=== PATIENT | male | born 1940 | race Caucasian/White ===

== ENCOUNTER 2017-09-28 13:52 | Inpatient (IN) | payer OTHER, MEDICARE ==
[~2017-09-28] VITALS: Ht 175.3 cm; Wt 87.5 kg
[~2017-09-28 13:52] MED LIST: ADULT LOW DOSE81 M1 PO; AMIODARONE HCL200 MG PO; ASPIR 8181 M1 PO; ASPIRIN E.C.81 M1 PO; CARDIZEM CD,CA180 MG PO; CARVEDILOL6.25 MG PO; CENTRUM SILVER1 EAC1 PO; CENTRUM SILVER1 EAC3 PO; Centrum Silver,Certa PO; Coreg PO; DIGOXIN125 MCG PO; DIGOXIN250 MCG PO; DILTIAZEM 24HR180 MG PO; FUROSEMIDE20 MG PO; LASIX20 MG PO; LASIX40 MG PO; LISINOPRIL2.5 MG PO; LOPRESSOR100 M1 PO; LOPRESSOR50 MG PO; LOVASTATIN10 MG PO; LOVASTATIN20 MG PO; LOVASTATIN40 MG PO; Lasix PO; METOPROLOL TART25 MG PO; METOPROLOL TART50 MG PO; MULTIVITAMIN1 EAC1 PO; NORVASC2.5 MG PO; PANTOPRAZOLE SO40 MG PO; THERAGRAN1 TABLET PO; VITAMIN D31000 UNIT PO; Vitamin D PO; XARELTO20 MG PO; Xarelto PO; Zestril,Prinivil PO
[2017-09-28 14:56] LABS: HEMATOCRIT 40.8 % (38.0-50.0); HEMOGLOBIN 13.9 G/DL (12.5-16.6); MCHC 34.1 G/DL (30.0-36.0); MCV 87.9 FL (86-99); PLATELET COUNT 210 K/uL (156-360); RBC DIS.WIDTH-CV 13.9 % (11.8-14.6); RBC DIS.WIDTH-SD 44.4 % (39-53); RED BLOOD COUNT 4.64 M/uL (4.00-5.50); WHITE BLOOD COUNT 13.6 K/uL (4.1-10.2)
[2017-09-28 15:04] LABS: ALBUMIN 3.7 g/dL (3.2-4.8); CHLORIDE 108 mEq/L (99-109); POTASSIUM 3.9 mEq/L (3.7-5.4); SODIUM 140 mEq/L (136-147)
[2017-09-28 15:06] LABS: GLUCOSE 144 mg/dL (70-99)
[2017-09-28 15:07] LABS: TOTAL PROTEIN 6.9 g/dL (6.4-8.3)
[2017-09-28 15:08] LABS: TOTAL BILIRUBIN 3.7 mg/dL (0.0-1.0)
[2017-09-28 15:10] LABS: ALKALINE PHOSPHATASE 82 IU/L (3-129); CREATININE 1.4 mg/dL (0.6-1.3); GFR ESTIMATE (CALCULATED) 52 mL/min/ (58.99-99999)
[2017-09-28 15:11] LABS: TROP-I INTERPRETATION NEGATIVE; TROPONIN-I 0.03 ng/mL (0.0-0.30); UREA NITROGEN (BUN) 19 mg/dL (9-23)
[2017-09-28 15:12] LABS: AST (GOT) 21 IU/L (2-34)
[2017-09-28 15:13] LABS: ALT (GPT) 9 IU/L (3-49)
[2017-09-28 15:19] LABS: DIGOXIN < 0.3 ng/mL (0.8-2.0)
[2017-09-28] MEDS ORDERED: LISINOPRIL2.5 MG PO (16:17)
[2017-09-28 16:18] VITALS: BP 90/68
[2017-09-28] MEDS ORDERED: METOPROLOL TAR100 MG PO (16:21)
[2017-09-28 18:18] VITALS: BP 90/60
[2017-09-28 19:30] VITALS: BP 124/97
[2017-09-28 23:55] VITALS: BP 147/75
[2017-09-29 04:00] VITALS: BP 119/92
[2017-09-29 06:00] LABS: HEMATOCRIT 36.9 % (38.0-50.0); HEMOGLOBIN 12.1 G/DL (12.5-16.6); MCH 29.4 PG (29.0-34.0); MCHC 32.8 G/DL (30.0-36.0); MCV 89.6 FL (86-99); PLATELET COUNT 180 K/uL (156-360); RBC DIS.WIDTH-CV 13.9 % (11.8-14.6); RBC DIS.WIDTH-SD 45.6 % (39-53); RED BLOOD COUNT 4.12 M/uL (4.00-5.50); WHITE BLOOD COUNT 10.6 K/uL (4.1-10.2)
[2017-09-29 06:26] LABS: CHLORIDE 106 MEQ/L (99-109); CREATININE 1.3 MG/DL (0.6-1.3); GFR ESTIMATE (CALCULATED) 57 mL/min/ (58.99-99999); GLUCOSE 142 mg/dL (70-99); POTASSIUM 3.9 MEQ/L (3.7-5.4); SODIUM 138 MEQ/L (136-147); UREA NITROGEN (BUN) 17 mg/dL (9-23)
[2017-09-29 07:23] VITALS: BP 131/63
[2017-09-29 12:28] VITALS: BP 151/73
[2017-09-29 15:39] VITALS: BP 138/65
[2017-09-29 19:15] VITALS: BP 118/72
[2017-09-29 23:32] VITALS: BP 107/56
[2017-09-30 03:39] VITALS: BP 118/64
[2017-09-30 09:00] VITALS: BP 137/70
[2017-09-30 12:00] VITALS: BP 131/65
[2017-09-30 12:00] LABS: C DIFF TOXIN NEGATIVE (NEGATIVE)
[2017-09-30 16:00] VITALS: BP 137/82
[2017-09-30 19:41] VITALS: BP 130/67
[2017-09-30 23:30] VITALS: BP 140/82
[2017-10-01 03:42] VITALS: BP 117/86
[2017-10-01 05:37] LABS: HEMATOCRIT 39.3 % (38.0-50.0); MCHC 33.1 G/DL (30.0-36.0); MCV 87.5 FL (86-99); PLATELET COUNT 214 K/uL (156-360); RBC DIS.WIDTH-CV 13.3 % (11.8-14.6); RBC DIS.WIDTH-SD 42.6 % (39-53); RED BLOOD COUNT 4.49 M/uL (4.00-5.50); WHITE BLOOD COUNT 8.8 K/uL (4.1-10.2)
[2017-10-01 05:52] LABS: CHLORIDE 106 MEQ/L (99-109); POTASSIUM 3.9 MEQ/L (3.7-5.4); SODIUM 141 MEQ/L (136-147)
[2017-10-01 05:58] LABS: CREATININE 1.1 MG/DL (0.6-1.3); GFR ESTIMATE (CALCULATED) > 59 mL/min/ (58.99-99999); GLUCOSE 108 mg/dL (70-99); UREA NITROGEN (BUN) 14 mg/dL (9-23)
[2017-10-01 09:00] VITALS: BP 137/75
[2017-10-01 12:00] VITALS: BP 142/73
[2017-10-01 16:00] VITALS: BP 121/68
[2017-10-01 19:45] VITALS: BP 158/102
[2017-10-02 00:24] VITALS: BP 124/90
[2017-10-02 04:30] VITALS: BP 136/92
[2017-10-02 06:07] LABS: BASOPHIL (%) 0.5 % (0-1); EOSINOPHIL (%) 2.9 % (0-5); EOSINOPHIL COUNT 0.3 K/uL (0-0.3); HEMATOCRIT 40.7 % (38.0-50.0); HEMOGLOBIN 13.6 G/DL (12.5-16.6); IMMATURE GRANULOCYTE (%) 0.6 % (0.0-0.7); LYMPHOCYTE COUNT 1.6 K/uL (1.0-2.8); MCH 29.8 PG (29.0-34.0); MCHC 33.4 G/DL (30.0-36.0); MCV 89.1 FL (86-99); MONOCYTE (%) 9.9 % (3-12); MONOCYTE COUNT 0.9 K/uL (0-0.8); NEUTROPHIL (%) 68.1 % (45-76); NEUTROPHIL COUNT 5.9 K/uL (1.8-6.4); PLATELET COUNT 215 K/uL (156-360); RBC DIS.WIDTH-CV 13.4 % (11.8-14.6); RBC DIS.WIDTH-SD 43.3 % (39-53); RED BLOOD COUNT 4.57 M/uL (4.00-5.50); WHITE BLOOD COUNT 8.6 K/uL (4.1-10.2)
[2017-10-02 06:49] LABS: CHLORIDE 104 MEQ/L (99-109); CREATININE 1.3 MG/DL (0.6-1.3); GFR ESTIMATE (CALCULATED) 57 mL/min/ (58.99-99999); GLUCOSE 134 mg/dL (70-99); POTASSIUM 4.1 MEQ/L (3.7-5.4); SODIUM 140 MEQ/L (136-147); UREA NITROGEN (BUN) 17 mg/dL (9-23)
[2017-10-02 07:38] VITALS: BP 104/71
[2017-10-02 10:41] VITALS: BP 116/78
[2017-10-02] MEDS ORDERED: CARDIZEM CD,CA240 MG PO (13:13)
[2017-10-02] MEDS ORDERED: CORDARONE200 MG PO ×2 (13:14→13:15)
[2017-10-02] MEDS ORDERED: CEFDINIR300 MG PO (13:16)
== END 2017-10-02 14:20 | disposition home or self-care (01) | DRG 871 ==
LOC: EME 13:52 → 4EAST 16:54 → EDOF 16:54 → ENRESERV 17:13 → 4EAST 18:20
PROVIDERS: Emergency Medicine; Hospitalist
DX: A41.9 Sepsis, unspecified organism (principal); J18.9 Pneumonia, unspecified organism; E86.0 Dehydration; I95.9 Hypotension, unspecified; I13.0 Hypertensive heart and chronic kidney disease with heart failure and stage 1 through stage 4 chronic kidney disease, or unspecified chronic kidney disease; I50.22 Chronic systolic (congestive) heart failure; N18.3 Chronic kidney disease, stage 3 (moderate); I48.91 Unspecified atrial fibrillation; E78.5 Hyperlipidemia, unspecified; I27.20 Pulmonary hypertension, unspecified; N40.0 Benign prostatic hyperplasia without lower urinary tract symptoms; I08.3 Combined rheumatic disorders of mitral, aortic and tricuspid valves; R19.7 Diarrhea, unspecified; Z86.73 Personal history of transient ischemic attack (TIA), and cerebral infarction without residual deficits; Z79.01 Long term (current) use of anticoagulants
CPT/HCPCS: 71045; 80048; 80053; 80162; 83605; 83880; 84484; 85025; 85027; 87040; 87493; 87502; 93005; 94799; 99281; 99285; J0456; J0696; J1160; J7050

== ENCOUNTER 2017-10-13 09:22 | Inpatient (IN) | payer OTHER, MEDICARE ==
[~2017-10-13] VITALS: Ht 154.9 cm; Wt 90.0 kg
[~2017-10-13 09:22] MED LIST changes: +CARDIZEM CD,CA240 MG PO; +CEFDINIR300 MG PO; +CORDARONE200 MG PO; +METOPROLOL TAR100 MG PO
[2017-10-13 10:09] LABS: HEMATOCRIT 43.2 % (38.0-50.0); HEMOGLOBIN 14.4 G/DL (12.5-16.6); MCH 29.6 PG (29.0-34.0); MCHC 33.3 G/DL (30.0-36.0); MCV 88.7 FL (86-99); RBC DIS.WIDTH-SD 45.1 % (39-53); RED BLOOD COUNT 4.87 M/uL (4.00-5.50); WHITE BLOOD COUNT 11.8 K/uL (4.1-10.2)
[2017-10-13 10:13] LABS: PLATELET COUNT 302 K/uL (156-360)
[2017-10-13 10:18] LABS: CHLORIDE 107 mEq/L (99-109); POTASSIUM 3.9 mEq/L (3.7-5.4); SODIUM 142 mEq/L (136-147)
[2017-10-13 10:20] LABS: GLUCOSE 109 mg/dL (70-99)
[2017-10-13 10:24] LABS: CREATININE 1.6 mg/dL (0.6-1.3); GFR ESTIMATE (CALCULATED) 45 mL/min/ (58.99-99999)
[2017-10-13 10:25] LABS: UREA NITROGEN (BUN) 22 mg/dL (9-23)
[2017-10-13 13:23] LABS: TROP-I INTERPRETATION NEGATIVE; TROPONIN-I 0.03 ng/mL (0.0-0.30)
[2017-10-13 17:25] LABS: TROP-I INTERPRETATION NEGATIVE; TROPONIN-I 0.04 ng/mL (0.0-0.30)
[2017-10-13] MEDS ORDERED: DILTIAZEM 24HR240 MG PO (21:21)
[2017-10-13] MEDS ORDERED: AMIODARONE HCL200 MG PO (21:21)
[2017-10-13] MEDS ORDERED: FUROSEMIDE40 MG PO (21:22)
[2017-10-13 23:30] VITALS: BP 151/82
[2017-10-14 00:19] LABS: TROP-I INTERPRETATION NEGATIVE; TROPONIN-I 0.02 ng/mL (0.0-0.30)
[2017-10-14 03:50] VITALS: BP 109/63
[2017-10-14 06:06] LABS: HEMATOCRIT 40.3 % (38.0-50.0); HEMOGLOBIN 13.4 G/DL (12.5-16.6); MCH 29.6 PG (29.0-34.0); MCHC 33.3 G/DL (30.0-36.0); MCV 89.2 FL (86-99); PLATELET COUNT 286 K/uL (156-360); RBC DIS.WIDTH-CV 14.3 % (11.8-14.6); RBC DIS.WIDTH-SD 45.5 % (39-53); RED BLOOD COUNT 4.52 M/uL (4.00-5.50); WHITE BLOOD COUNT 7.6 K/uL (4.1-10.2)
[2017-10-14 06:28] LABS: CHLORIDE 106 MEQ/L (99-109); CREATININE 1.3 MG/DL (0.6-1.3); GFR ESTIMATE (CALCULATED) 57 mL/min/ (58.99-99999); GLUCOSE 109 mg/dL (70-99); POTASSIUM 3.9 MEQ/L (3.7-5.4); SODIUM 143 MEQ/L (136-147); TROP-I INTERPRETATION NEGATIVE; TROPONIN-I 0.02 ng/mL (0.0-0.30); UREA NITROGEN (BUN) 20 mg/dL (9-23)
[2017-10-14 08:02] VITALS: BP 110/81
[2017-10-14 12:45] VITALS: BP 114/78
[2017-10-14 16:33] VITALS: BP 122/68
[2017-10-14 23:59] VITALS: BP 124/75
[2017-10-15 04:00] VITALS: BP 124/85
[2017-10-15 06:02] LABS: BASOPHIL (%) 0.7 % (0-1); BASOPHIL COUNT 0.1 K/uL (0-0.1); EOSINOPHIL (%) 1.6 % (0-5); EOSINOPHIL COUNT 0.1 K/uL (0-0.3); HEMATOCRIT 41.3 % (38.0-50.0); HEMOGLOBIN 13.3 G/DL (12.5-16.6); IMMATURE GRANULOCYTE (%) 0.2 % (0.0-0.7); LYMPHOCYTE (%) 17.4 % (15-42); LYMPHOCYTE COUNT 1.6 K/uL (1.0-2.8); MCHC 32.2 G/DL (30.0-36.0); MONOCYTE (%) 8.9 % (3-12); MONOCYTE COUNT 0.8 K/uL (0-0.8); NEUTROPHIL (%) 71.2 % (45-76); NEUTROPHIL COUNT 6.4 K/uL (1.8-6.4); PLATELET COUNT 292 K/uL (156-360); RBC DIS.WIDTH-CV 14.3 % (11.8-14.6); RBC DIS.WIDTH-SD 45.8 % (39-53); RED BLOOD COUNT 4.59 M/uL (4.00-5.50)
[2017-10-15 06:09] LABS: CHLORIDE 102 MEQ/L (99-109); CREATININE 1.5 MG/DL (0.6-1.3); GFR ESTIMATE (CALCULATED) 48 mL/min/ (58.99-99999); GLUCOSE 127 mg/dL (70-99); POTASSIUM 3.9 MEQ/L (3.7-5.4); SODIUM 139 MEQ/L (136-147); UREA NITROGEN (BUN) 24 mg/dL (9-23)
[2017-10-15 08:30] VITALS: BP 115/80
[2017-10-15] MEDS ORDERED: LOPRESSOR100 M1 PO (12:48)
[2017-10-15 12:58] VITALS: BP 110/69
== END 2017-10-15 15:49 | disposition home or self-care (01) | DRG 291 ==
LOC: EME 09:22 → 4EAST 20:59 → EDOF 20:59 → ENRESERV 21:00 → 4EAST 23:13
PROVIDERS: Hospitalist; Internal Medicine; Physician Assistant Medical
DX: I13.0 Hypertensive heart and chronic kidney disease with heart failure and stage 1 through stage 4 chronic kidney disease, or unspecified chronic kidney disease (principal); I50.23 Acute on chronic systolic (congestive) heart failure; I48.1 Persistent atrial fibrillation; I27.20 Pulmonary hypertension, unspecified; R09.02 Hypoxemia; N18.3 Chronic kidney disease, stage 3 (moderate); I42.9 Cardiomyopathy, unspecified; E78.5 Hyperlipidemia, unspecified; I05.0 Rheumatic mitral stenosis; Z86.73 Personal history of transient ischemic attack (TIA), and cerebral infarction without residual deficits; E66.9 Obesity, unspecified; Z68.38 Body mass index [BMI] 38.0-38.9, adult
CPT/HCPCS: 71046; 71275; 80048; 82948; 83880; 84484; 85025; 85027; 87502; 93005; 94640; 99281; 99284; J1940; J7030

== ENCOUNTER 2017-10-21 12:07 | Inpatient (IN) | payer OTHER, MEDICARE ==
[~2017-10-21] VITALS: Ht 177.8 cm; Wt 89.6 kg
[~2017-10-21 12:07] MED LIST changes: +DILTIAZEM 24HR240 MG PO; +FUROSEMIDE40 MG PO
[2017-10-21 13:27] LABS: BASOPHIL (%) 0.5 % (0-1); EOSINOPHIL (%) 0.4 % (0-5); HEMATOCRIT 43.4 % (38.0-50.0); HEMOGLOBIN 14.2 G/DL (12.5-16.6); IMMATURE GRANULOCYTE (%) 0.9 % (0.0-0.7); LYMPHOCYTE (%) 11.2 % (15-42); LYMPHOCYTE COUNT 0.9 K/uL (1.0-2.8); MCH 29.5 PG (29.0-34.0); MCHC 32.7 G/DL (30.0-36.0); MONOCYTE (%) 7.1 % (3-12); MONOCYTE COUNT 0.6 K/uL (0-0.8); NEUTROPHIL (%) 79.9 % (45-76); NEUTROPHIL COUNT 6.2 K/uL (1.8-6.4); PLATELET COUNT 229 K/uL (156-360); RBC DIS.WIDTH-CV 14.3 % (11.8-14.6); RBC DIS.WIDTH-SD 46.1 % (39-53); RED BLOOD COUNT 4.82 M/uL (4.00-5.50); WHITE BLOOD COUNT 7.7 K/uL (4.1-10.2)
[2017-10-21 13:33] LABS: INTER. NORMALIZED RATIO 3.2
[2017-10-21 13:36] LABS: PTT 41.2 SEC (25-37)
[2017-10-21 13:39] LABS: CHLORIDE 105 mEq/L (99-109); POTASSIUM 4.2 mEq/L (3.7-5.4); SODIUM 143 mEq/L (136-147)
[2017-10-21 13:41] LABS: GLUCOSE 130 mg/dL (70-99)
[2017-10-21 13:45] LABS: CREATININE 1.9 mg/dL (0.6-1.3); GFR ESTIMATE (CALCULATED) 37 mL/min/ (58.99-99999)
[2017-10-21 13:46] LABS: TROP-I INTERPRETATION NEGATIVE; TROPONIN-I 0.02 ng/mL (0.0-0.30); UREA NITROGEN (BUN) 29 mg/dL (9-23)
[2017-10-21] MEDS ORDERED: DILTIAZEM 24HR240 MG PO (16:46)
[2017-10-21] MEDS ORDERED: METOPROLOL TAR100 MG PO (16:47)
[2017-10-21] MEDS ORDERED: LISINOPRIL2.5 MG PO (16:47)
[2017-10-21 20:27] VITALS: BP 135/78
[2017-10-22 00:31] VITALS: BP 112/55
[2017-10-22 04:23] VITALS: BP 108/77
[2017-10-22 05:46] LABS: HEMATOCRIT 40.6 % (38.0-50.0); HEMOGLOBIN 13.2 G/DL (12.5-16.6); MCH 29.7 PG (29.0-34.0); MCHC 32.5 G/DL (30.0-36.0); MCV 91.2 FL (86-99); PLATELET COUNT 191 K/uL (156-360); RBC DIS.WIDTH-CV 14.6 % (11.8-14.6); RBC DIS.WIDTH-SD 47.8 % (39-53); RED BLOOD COUNT 4.45 M/uL (4.00-5.50); WHITE BLOOD COUNT 6.6 K/uL (4.1-10.2)
[2017-10-22 06:20] LABS: CHLORIDE 103 MEQ/L (99-109); CREATININE 1.8 MG/DL (0.6-1.3); GFR ESTIMATE (CALCULATED) 39 mL/min/ (58.99-99999); GLUCOSE 126 mg/dL (70-99); POTASSIUM 4.4 MEQ/L (3.7-5.4); SODIUM 143 MEQ/L (136-147); UREA NITROGEN (BUN) 26 mg/dL (9-23)
[2017-10-22 08:06] VITALS: BP 101/72
[2017-10-22 11:15] VITALS: BP 106/71
[2017-10-22 14:54] LABS: APPEARANCE CLOUDY ((CLEAR)); BILIRUBIN NEGATIVE; BLOOD NEGATIVE; COLOR YELLOW ((YELLOW)); GLUCOSE (STRIP) NEGATIVE; KETONES NEGATIVE; LEUKOCYTES LARGE; NITRITE NEGATIVE; PROTEIN (STRIP) NEGATIVE; SPECIFIC GRAVITY 1.015 (1.000-1.030); UROBILINOGEN 0.2 MG/DL (0.2-1.0)
[2017-10-22 15:52] LABS: RED BLOOD CELLS RARE /HPF (0-5); WHITE BLOOD CELLS TNTC /HPF (0-5)
[2017-10-22 15:53] LABS: EPITHELIAL CELLS 2+ /HPF; MUCUS RARE /LPF
[2017-10-22 15:54] LABS: AMORPHOUS URATES CRYSTALS 1+; BACTERIA RARE /HPF
[2017-10-22 16:22] VITALS: BP 110/71
[2017-10-22 16:51] LABS: UR CREATININE CONCENTRATION 149.6 MG/DL
[2017-10-22 20:17] VITALS: BP 118/63
[2017-10-23 00:16] VITALS: BP 105/68
[2017-10-23 03:45] VITALS: BP 105/61
[2017-10-23 05:30] LABS: BASOPHIL (%) 0.5 % (0-1); EOSINOPHIL (%) 2.6 % (0-5); EOSINOPHIL COUNT 0.2 K/uL (0-0.3); HEMATOCRIT 40.5 % (38.0-50.0); HEMOGLOBIN 12.8 G/DL (12.5-16.6); IMMATURE GRANULOCYTE (%) 1.4 % (0.0-0.7); LYMPHOCYTE COUNT 1.5 K/uL (1.0-2.8); MCH 28.5 PG (29.0-34.0); MCHC 31.6 G/DL (30.0-36.0); MCV 90.2 FL (86-99); MONOCYTE (%) 11.1 % (3-12); MONOCYTE COUNT 0.9 K/uL (0-0.8); NEUTROPHIL (%) 65.4 % (45-76); NEUTROPHIL COUNT 5.1 K/uL (1.8-6.4); PLATELET COUNT 182 K/uL (156-360); RBC DIS.WIDTH-CV 14.3 % (11.8-14.6); RBC DIS.WIDTH-SD 47.2 % (39-53); RED BLOOD COUNT 4.49 M/uL (4.00-5.50); WHITE BLOOD COUNT 7.8 K/uL (4.1-10.2)
[2017-10-23 05:48] LABS: CHLORIDE 103 MEQ/L (99-109); CREATININE 1.8 MG/DL (0.6-1.3); GFR ESTIMATE (CALCULATED) 39 mL/min/ (58.99-99999); GLUCOSE 106 mg/dL (70-99); MAGNESIUM 2.2 mg/dl (1.3-2.7); PHOSPHORUS 3.9 mg/dL (2.5-4.9); POTASSIUM 3.9 MEQ/L (3.7-5.4); SODIUM 142 MEQ/L (136-147); UREA NITROGEN (BUN) 31 mg/dL (9-23)
[2017-10-23 08:00] VITALS: BP 115/66
[2017-10-23 12:14] VITALS: BP 137/87
[2017-10-23] MEDS ORDERED: DIGOXIN50 MCG/1 M PO (15:42)
[2017-10-23] MEDS ORDERED: CEFTIN500 MG PO (15:43)
[2017-10-23 16:07] VITALS: BP 127/68
== END 2017-10-23 17:28 | disposition home or self-care (01) | DRG 291 ==
LOC: EME 12:07 → EDOF 16:27 → 5WEST 16:27 → ENRESERV 16:30 → 5WEST 20:13
PROVIDERS: Emergency Medicine; Internal Medicine; Internal Medicine Nephrology
DX: I13.0 Hypertensive heart and chronic kidney disease with heart failure and stage 1 through stage 4 chronic kidney disease, or unspecified chronic kidney disease (principal); I50.43 Acute on chronic combined systolic (congestive) and diastolic (congestive) heart failure; N17.9 Acute kidney failure, unspecified; N12 Tubulo-interstitial nephritis, not specified as acute or chronic; N14.0 Analgesic nephropathy; T39.395A Adverse effect of other nonsteroidal anti-inflammatory drugs [NSAID], initial encounter; N14.1 Nephropathy induced by other drugs, medicaments and biological substances; T50.1X5A Adverse effect of loop [high-ceiling] diuretics, initial encounter; T46.4X5A Adverse effect of angiotensin-converting-enzyme inhibitors, initial encounter; T48.5X5A Adverse effect of other anti-common-cold drugs, initial encounter; N18.3 Chronic kidney disease, stage 3 (moderate); I42.0 Dilated cardiomyopathy; I48.0 Paroxysmal atrial fibrillation; I48.2 Chronic atrial fibrillation; R09.02 Hypoxemia; I05.0 Rheumatic mitral stenosis; E78.5 Hyperlipidemia, unspecified; K21.9 Gastro-esophageal reflux disease without esophagitis; N40.0 Benign prostatic hyperplasia without lower urinary tract symptoms; I44.0 Atrioventricular block, first degree; Z86.73 Personal history of transient ischemic attack (TIA), and cerebral infarction without residual deficits; Z87.01 Personal history of pneumonia (recurrent); Z90.49 Acquired absence of other specified parts of digestive tract; Z79.01 Long term (current) use of anticoagulants; Z82.49 Family history of ischemic heart disease and other diseases of the circulatory system
CPT/HCPCS: 71045; 71046; 76770; 80048; 81003; 82570; 83735; 83880; 84100; 84156; 84484; 85025; 85027; 85610; 85730; 93005; 94799; 99281; 99285; G0378; J0696; J1160; J1940